=== PATIENT | female | born 1980 | race Caucasian/White ===

== ENCOUNTER 2017-09-26 11:23 | Emergency (ER) | payer OTHER ==
[2017-09-26 11:30] VITALS: BP 99/50
--- OUTSIDE RECORDS SUMMARY | 2017-09-26 11:31 | XMS REPORT ---
:1980 External Reference #:[id number] Author Organization [facility] [employer] [facility] Address [address] [place] [address] Phone [phone] Care Team Providers Name Role Phone Bernadette Martell Care Team Information Log Buncher Unavailable Bernadette Martell Primary Care Physician Unavailable Payers Type Date Identification Numbers Payment Provider Subscriber Commercial Policy Number: [id number] [employer] Jose Group Number: [id number] [address] PayID: [id number] [place] [address] Problems Date Description Provider Status Onset: 08/28/2016 Miscarriage María Martin NP Active Family History Date Family Member(s) Problem(s) Comments Father due to Pulmonary Embolus () Father Skin Cancer Father Diabetes Father Osteoporosis Father Para-thyroid Disease Mother Hypertension Mother Thyroid Disease Mother Fibromyalgia First Daughter A&W First Sister Depression First Sister Asthma Second Sister Depression Second Sister Thyroid Disease Paternal Grandfather Heart Disease Paternal Grandfather due to Old Age () Paternal Grandmother due to CVA () Paternal Grandmother Breast Cancer Paternal Grandmother Diabetes Paternal Grandmother Hypertension Maternal Grandfather due to Blood Clotting Disorder () Maternal Grandmother Bryan's Thyroiditis Maternal Grandmother due to COPD () Maternal Grandmother Hypertension Maternal Aunts Leukemia Social History Type Date Description Comments Education Highest level completed, Doctorate Marital Status Lives With Lives With Daughter Smoke-Free Home is smoke-free Pets None Occupation Professor Cigarette Use Never Smoked Cigarettes ETOH Use Occasionally consumes alcohol Smoking Patient has never smoked Recreational Drug Use Denies Drug Use Daily Caffeine Does not consume caffeine Exercise Type/Frequency Exercises sporadically Seat Belt/Car Seat Always uses seat belt Currently Active Patient is currently sexually active Contraceptive Methods None STD's No STD History Allergies, Adverse Reactions, Alerts Date Description Reaction Status Severity Comments 03/20/2014 Sulfa Antibiotics Anaphylaxis, Urticaria active 03/21/2014 Reglan active 03/22/2014 Codeine active 07/18/2014 Bacitracin active 07/18/2014 Environmental active 08/28/2016 Biaxin active Medications Medication Date Status Form Strength Qnty SIG Indications Ordering Provider / Active Unknown Vitamin 0000 Diflucan 03/02/ Hx Tablets 150mg 2tabs take one Mary 2016 - tablet by Donis 03/05/ mouth - , CNM 2016 repeat in 48 hours if no improvement No Active 08/28/ Hx Unknown Medications 2016 - 2015 Terconazole 08/26/ Hx Cream 0.8% 20g use 1 vaginal Rodney A. 2015 - applicator Gelber, 08/26/ every night M.D. 2016 at bedtime x 3 days Nystatin 08/25/ Hx Ointment [id number] 15gm use three Corrina 2016 - /GM times a day Jose, 08/27/ to affected 2016 area as needed pruritis Citric 02/11/ Hx Solution 334-500mg/ 250cc take 10-30cc Phaelon Acid-Sodium 2015 - 5ML PO every 6 MD Akosua Citrate 12/13/ hrs as needed 2015 for heartburn Ranitidine 01/01/ Hx Tablets 150mg 60tabs take 1 tab by Phaelon HCL 2015 - mouth 1-2 MD Akosua 02/24/ times daily 2014 for heartburn Calcium 500 + 00/00/ Hx Unknown D - 2013 Lysine 00/00/ Hx 500mg Unknown - 2013 Nuvaring 00/00/ Hx Unknown 0000 - 2013 Valtrex 00/00/ Hx Unknown - 2013 Vitamin C 00/00/ Hx Unknown 0000 - W/Vitamin E 2013 00/00/ Hx Unknown 0000 - 2015 Claritin 00/00/ Hx Unknown 0000 - 2013 Tums 00/00/ Hx Unknown 0000 - 2014 Immunizations CPT Code Status Date Vaccine Lot # [id number] Given 11/27/2014 Tetnus, Diptheria Toxoids And Acellular Pertussis, [id number] PT > 7Yrs Old Vital Signs Date Vital Result Comment 09/18/2017 BP Systolic 110 mmHg BP Diastolic 70 mmHg Height 64.5 inches 5'4.50" Weight 122.00 lb BMI (Body Mass Index) 20.6 kg/m2 Last Menstrual Period 9170256 3 Parity 1 04/23/2017 BP Systolic 102 mmHg BP Diastolic 60 mmHg Height 64.5 inches 5'4.50" Weight 122.00 lb BMI (Body Mass Index) 20.6 kg/m2 Last Menstrual Period 8769888 3 Parity 1 03/05/2017 BP Systolic 116 mmHg BP Diastolic 62 mmHg Height 64.5 inches 5'4.50" Weight 121.00 lb BMI (Body Mass Index) 20.4 kg/m2 3 Parity 1 03/02/2017 BP Systolic 106 mmHg BP Diastolic 60 mmHg Height 64.5 inches 5'4.50" Weight 122.00 lb BMI (Body Mass Index) 20.6 kg/m2 Last Menstrual Period 8022482 3 Parity 1 02/27/2017 BP Systolic 100 mmHg BP Diastolic 62 mmHg Height 64.5 inches 5'4.50" Weight 121.00 lb BMI (Body Mass Index) 20.4 kg/m2 Last Menstrual Period 7311005 3 Parity 1 02/18/2017 BP Systolic 104 mmHg BP Diastolic 64 mmHg Height 64.5 inches 5'4.50" Weight 121.00 lb BMI (Body Mass Index) 20.4 kg/m2 Last Menstrual Period 0143256 3 Parity 1 12/26/2016 BP Systolic 104 mmHg BP Diastolic 56 mmHg Height 64.5 inches 5'4.50" Weight 118.00 lb BMI (Body Mass Index) 19.9 kg/m2 Last Menstrual Period 4987483 2 Parity 1 09/30/2016 BP Systolic 100 mmHg BP Diastolic 66 mmHg Height 64.5 inches 5'4.50" Weight 119.00 lb BMI (Body Mass Index) 20.1 kg/m2 Last Menstrual Period 8968435 2 Parity 1 09/12/2016 BP Systolic 108 mmHg BP Diastolic 64 mmHg Height 64.5 inches 5'4.50" Weight 121.00 lb BMI (Body Mass Index) 20.4 kg/m2 Last Menstrual Period 8881058 2 Parity 1 09/02/2016 BP Systolic 100 mmHg BP Diastolic 68 mmHg Height 64.5 inches 5'4.50" Weight 119.00 lb BMI (Body Mass Index) 20.1 kg/m2 Last Menstrual Period 5394554 2 Parity 1 08/28/2016 BP Systolic 108 mmHg BP Diastolic 60 mmHg Height 64.5 inches 5'4.50" Weight 119.00 lb BMI (Body Mass Index) 20.1 kg/m2 Last Menstrual Period 8321007 2 Parity 1 08/25/2016 BP Systolic 106 mmHg BP Diastolic 64 mmHg Height 64.5 inches 5'4.50" Weight 119.00 lb BMI (Body Mass Index) 20.1 kg/m2 Last Menstrual Period 4476619 1 Parity 1 05/28/2016 BP Systolic 104 mmHg BP Diastolic 70 mmHg Height 64.5 inches 5'4.50" Weight 116.00 lb BMI (Body Mass Index) 19.6 kg/m2 1 Parity 1 12/20/2015 BP Systolic 118 mmHg BP Diastolic 66 mmHg Height 64.5 inches 5'4.50" Weight 111.00 lb BMI (Body Mass Index) 18.8 kg/m2 Last Menstrual Period 7287553 1 Parity 1 03/26/2015 BP Systolic 104 mmHg BP Diastolic 68 mmHg Height 64.5 inches 5'4.50" Weight 126.00 lb BMI (Body Mass Index) 21.3 kg/m2 Last Menstrual Period 4363016 1 Parity 1 03/14/2015 BP Systolic 98 mmHg BP Diastolic 58 mmHg Body Temperature 97.7 F Height 64.5 inches 5'4.50" Weight 130.00 lb BMI (Body Mass Index) 22.0 kg/m2 Last Menstrual Period 8269284 1 Parity 1 07/18/2014 BP Systolic 118 mmHg BP Diastolic 68 mmHg Height 64.5 inches 5'4.50" Weight 127.00 lb BMI (Body Mass Index) 21.5 kg/m2 Last Menstrual Period 0056723 1 Parity 0 03/22/2014 BP Systolic 98 mmHg BP Diastolic 60 mmHg Height 64.5 inches 5'4.50" Weight 124.00 lb BMI (Body Mass Index) 21.0 kg/m2 Last Menstrual Period 8163937 0 Results Test Date Test Result H/L Range Note Laboratory test finding 03/23/2017 HCG 8.61 mIU/mL 1 Laboratory test finding 03/05/2017 Surgical Pathology SEE RESULT 2 BELOW Urine Culture And 02/27/2017 Urine Culture SEE RESULT 3 Sensitivities BELOW Laboratory test finding 10/08/2016 HCG 13.39 mIU/mL 4, 5 Laboratory test finding 09/30/2016 HCG 38.47 mIU/mL 6 CBC With No Diff 09/18/2016 White Blood Count 5.9 10^3/uL 3.5-10.8 Red Blood Count 4.60 10^6/uL 4.0-5.4 Hemoglobin 14.4 g/dL 12.0-16.0 Hematocrit 43 % 35-47 Mean Corpuscular Volume 94 fL 80-97 Mean Corpuscular Hemoglobin 31 pg 27-31 Mean Corpuscular HGB Conc 33 g/dL 31-36 Red Cell Distribution Width 14 % 10.5-15 Platelet Count 209 10^3/uL 150-450 Mean Platelet Volume 10 um3 7.4-10.4 Laboratory test finding 09/18/2016 HCG 770.19 mIU/mL 7 Laboratory test finding 08/30/2016 HCG 45468.00 mIU/mL 8 Laboratory test finding 08/28/2016 HCG 71273.00 mIU/mL 9 Urine Culture And 08/28/2016 Urine Culture SEE RESULT BELOW 10 Sensitivities Laboratory test finding 08/25/2016 Gardnerella/Yeast: SEE RESULT BELOW 11 Vaginal Dna Laboratory test finding 12/20/2015 Cytology SEE RESULT BELOW 12 Cardiolipin AB 12/20/2015 Cardiolipin AB (Iga) <11 APL <=11 13 Igg,Iga,Igm Cardiolipin AB (Igg) <14 GPL <=14 14 Cardiolipin AB (Igm) <12 MPL <=12 15 Lupus Anticoagulant 12/20/2015 Lupus Anticoagulant see note 16 PTT-LA Screen 43 sec High <=40 DRVVT Mix Interpretation Not Indicated DRVVT Screen 49 sec High <=45 Laboratory test finding 12/20/2015 Hexagonal Phase Confirm Negative Negative (Reflex) DRVVT Confirmation (Reflex) Negative Negative CBC With No Diff 01/15/2015 White Blood Count 11.7 10^3/uL High 4.8-10.8 17 Red Blood Count 3.65 10^6/uL Low 4.0-5.4 17 Hemoglobin 11.9 g/dL Low 12.0-16.0 17 Hematocrit 35 % 35-47 17 Mean Corpuscular Volume 95 fL 80-97 17 Mean Corpuscular Hemoglobin 33 pg High 27-31 17 Mean Corpuscular HGB Conc 34 g/dL 31-36 17 Red Cell Distribution Width 13 % 10.5-15 17 Platelet Count 163 10^3/uL 150-450 17 Mean Platelet Volume 11 um3 High 7.4-10.4 17 Type And Screen 01/15/2015 Patient Blood Type A Positive 17 Antibody Screen NEGATIVE 17 Laboratory test 01/15/2015 Hemoglobin 0.00 17, 18 finding Stain Laboratory test 01/01/2015 Group B Strep (SEE NOTE) 19 finding Culture Screen CBC With No Diff 11/09/2014 White Blood Count 11.4 10^3/uL High 4.8-10.8 Red Blood Count 3.63 10^6/uL Low 4.0-5.4 Hemoglobin 12.0 g/dL 12.0-16.0 Hematocrit 36 % 35-47 Mean Corpuscular Volume 99 fL High 80-97 Mean Corpuscular Hemoglobin 33 pg High 27-31 Mean Corpuscular HGB Conc 33 g/dL 31-36 Red Cell Distribution Width 13 % 10.5-15 Platelet Count 180 10^3/uL 150-450 Mean Platelet Volume 10 um3 7.4-10.4 Laboratory test finding 11/09/2014 Glucose 1 HR Post Prandial 87 mg/dL 70 -160 Maternal Serum Afp 08/15/2014 EMA Interpretation SEE NOTE 20 Risk For NTD (Osb) LESS THAN 1:5000 21 Afp,Serum 26.8 NG/ML Adjusted Mom 0.77 22 Comment SEE NOTE 23 Date Of 1980 CLAUDIA 02/05/2015 CLAUDIA Determined By ULTRASOUND Gestational Age 15.1 WEEKS Weight 127 LBS Race =W Insulin Dependent Diabetic NO Repeat Sample NO Number Of Fetuses 1 History Of NTD NO Date Of Draw 08/15/2014 Wrapper Layer SEE NOTE 24 Urine Culture And Sensitivities 07/18/2014 Urine Culture (SEE NOTE) 25 Cystic Fibrosis Carrier ([place]) 07/18/2014 Reported Ethnicity see note 26 CF Result see note 27 Interpretation see note 28 Mutations/Polymorphisms see note 29 Method see note 30 Reviewer see note 31 HIV 1/2 AB Evaluation 07/18/2014 HIV 1 2 Antibody Nonreactive Nonreactive 32, 33 Type And Screen 07/18/2014 Patient Blood Type A Positive 32 Antibody Screen NEGATIVE 32 CBC With No Diff 07/18/2014 White Blood Count 8.0 10^3/uL 4.8-10.8 32 Red Blood Count 4.19 10^6/uL 4.0-5.4 32 Hemoglobin 13.5 g/dL 12.0-16.0 32 Hematocrit 39 % 35-47 32 Mean Corpuscular Volume 94 fL 80-97 32 Mean Corpuscular Hemoglobin 32 pg High 27-31 32 Mean Corpuscular HGB Conc 34 g/dL 31-36 32 Red Cell Distribution Width 13 % 10.5-15 32 Platelet Count 201 10^3/uL 150-450 32 Mean Platelet Volume 10 um3 7.4-10.4 32 RPR 07/18/2014 Syphilis IgG TNP Nonreactive 32 RPR Nonreactive Nonreactive 32 RPR Titer TNP 32 Pediatric/Maternal YES 32 PNL No Urine 07/18/2014 Rubella Screen Immune IU/mL Immune 32 Hemoglobin A1c 5.2 % Less than 6.0 32, 34 Hepatitis B Surface Antigen Nonreactive Nonreactive 32, 35 HPV E6/E7 Mrna 07/18/2014 Aptima HPV (SEE NOTE) 36 ThinPrep Pap Test HPV Regardless SEE IMAGE Laboratory test finding 07/18/2014 ThinPrep Pap Test HPV (SEE NOTE) 37 Regardless Chlamydia / Neisseria - Liquid Cytology (SEE NOTE) 38 Type And Screen 06/28/2014 Patient Blood Type A Positive 39 Antibody Screen NEGATIVE 39 Laboratory test finding 03/22/2014 Beta HCG Quantitative < 0.60 IU/mL 0.0-5.0 40 1 <5.0 Negative 5.0 - 25.0 Indeterminate (Repeat testing recommended after 72 hours) >25.0 Positive Perimenopausal women can display HCG levels of up to 20 mIU/mL 2 SEE RESULT BELOW Name: GRIFFIN ROSALES : [address]: Lorin JONES Acct: [id number] Unit: [id number] AGE: 36 Location: [facility] Re03/05/17 SEX: F Status: REG REF SPEC: [id number] ENEIDA: 03/05/[address]: Lorin JONES REQ: [id number] RECD: 03/05/17114 STATUS: SOUT _ ORDERED: LEVEL 4 COMMENTS: [id number] Deeper levels of sectioning through all the blocks show no evidence of parts or chorionic villi. Addendum Signed (signature on file) Wandy Woodard MD 1116 FINAL DIAGNOSIS Uterine contents, curettage: -- Decidualized hypersecretory endometrium; see comment. COMMENT: Diagnostic evidence of parts or chorionic villi is not identified in the initial levels of sectioning examined. Deeper levels of sectioning are pending and the results will be reported in an addendum. CLINICAL HISTORY LMP: 12/24, 02/18 ultrasound shows 5 week 5 day positive cardiac activity, 02/27 ultrasound shows 6 week slow agonal cardiac activity, 03/02 ultrasound shows no cardiac activity, 03/05 tissue passed. PRE-OPERATIVE DIAGNOSIS Possible missed GROSS DESCRIPTION The specimen is received in formalin with no source identified and a requisition labeled, Question POC, and consists of two brandon-archuleta irregular membranous tissue fragments with a small amount of adherent red-brown blood clot aggregating 4.6 x 3.5 by up to 0.8 cm. Definitive chorionic villi are not identified. No parts are identified. Entirely submitted, five cassettes. CONTINUED ON NEXT PAGE * ML=Testing performed at Main Lab DEPARTMENT OF PATHOLOGY, [address] [place] [address] Darryl Garnica M.D. Director [facility] # [id number] RUN DATE: 03/09/17 [facility] LAB LIVE PAGE 2 Patient: PATRICA YURYGRIFFIN [id number] (Continued) GROSS DESCRIPTION (Continued) Signed (signature on file) Wandy Woodard MD 1522 END OF REPORT * ML=Testing performed at Main Lab DEPARTMENT OF PATHOLOGY, [address] [place] [address] Darryl Garnica M.D. Director [facility] # [id number] 3 SEE RESULT BELOW Name: GRIFFIN ROSALES : [address]: Mary Dykes CNM Acct: [id number] Unit: [id number] AGE: 36 Location: [facility] Re02/27/17 SEX: F Status: REG REF SPEC: [id number] ENEIDA: 02/27/17-1032 [facility] DR: Mary Dykes [facility] REQ: [id number] RECD: 02/27/17044 STATUS: COMP _ SOURCE: URINE SPDESC: ORDERED: Urine Culture COMMENTS: [id number] Urine Source: Random Procedure Result Reported Site Urine Culture Final 03/02/17- 0904 ML Organism 1 CHLOÉ ALBICANS [place] Count 1-10,000 (Few) CFU/ML * ML - MAIN LAB ([facility]) . END OF REPORT * ML=Testing performed at Main Lab DEPARTMENT OF PATHOLOGY, [address] [place] [address] Darryl Garnica M.D. Director [facility] # [id number] 4 [id number] 5 <5.0 Negative 5.0 - 25.0 Indeterminate (Repeat testing recommended after 72 hours) >25.0 Positive Perimenopausal women can display HCG levels of up to 20 mIU/mL 6 <5.0 Negative 5.0 - 25.0 Indeterminate (Repeat testing recommended after 72 hours) >25.0 Positive Perimenopausal women can display HCG levels of up to 20 mIU/mL 7 <5.0 Negative 5.0 - 25.0 Indeterminate (Repeat testing recommended after 72 hours) >25.0 Positive Perimenopausal women can display HCG levels of up to 20 mIU/mL 8 <5.0 Negative 5.0 - 25.0 Indeterminate (Repeat testing recommended after 72 hours) >25.0 Positive Perimenopausal women can display HCG levels of up to 20 mIU/mL 9 <5.0 Negative 5.0 - 25.0 Indeterminate (Repeat testing recommended after 72 hours) >25.0 Positive Perimenopausal women can display HCG levels of up to 20 mIU/mL 10 SEE RESULT BELOW Name: GRIFFIN ROSALES : [address]: María Martin NP Acct: [id number] Unit: [id number] AGE: 35 Location: [facility] Re08/28/16 SEX: F Status: REG REF SPEC: [id number] ENEIDA: 08/28/[address]: María Martin NP REQ: [id number] RECD: 08/28/162595 STATUS: COMP _ SOURCE: URINE SPDESC: ORDERED: Urine Culture COMMENTS: [id number] Urine Source: Random Procedure Result Reported Site Urine Culture Final 08/29/16- 1605 ML No Growth (<1,000 CFU/mL) * ML - [facility] ([facility]) . END OF REPORT * ML=Testing performed at Main Lab DEPARTMENT OF PATHOLOGY, [address] [place] [address] Darryl Garnica M.D. Director [facility] # [id number] 11 SEE RESULT BELOW Name: GRIFFIN ROSALES : [address]: María Martin NP Acct: [id number] Unit: [id number] AGE: 35 Location: [facility] Re08/25/16 SEX: F Status: REG REF SPEC: [id number] ENEIDA: 12 [facility] DR: María Martin NP REQ: [id number] RECD: 08/25/16 STATUS: COMP _ SOURCE: VAGINAL SPDESC: ORDERED: Alexandrea,Yeast DNA, Trich DNA COMMENTS: [id number] Procedure Result Reported Site Gardnerella/Yeast: Vaginal DNA Final 08/26/16- 1041 ML Organism 1 Negative Gardnerella Organism 2 POSITIVE CHLOÉ The presence of G. vaginalis, although suggestive, is not diagnostic for bacterial vaginosis. Results should be interpreted in conjuction with other clinical and laboratory data available. Women with vaginal discharge should be evaluated for risk factors of cervicitis and pelvic inflammatory disease, toxic shock syndrome (S.aureus), and if present, evaluated for organisms not included in this assay such as N. gonorrhoeae, C. trachomatis, Mobiluncus, Mycoplasma and/or Prevotella. Mixed infections may occur. The performance of this test on patient specimens collected during or immediately after antimicrobial therapy is unknown. The presence or absence of Chloé species, or G. vaginalis cannot be used as a test for therapeutic success or failure. Trichomonas: Vaginal DNA Probe Final 08/26/16- 1041 ML Organism 1 Negative Trichomonas CONTINUED ON NEXT PAGE * ML=Testing performed at Main Lab DEPARTMENT OF PATHOLOGY, [address] [place] [address] Darryl Garnica M.D. Director [facility] # [id number] Patient: GRIFFIN ROSALES [id number] (Continued) Specimen: [id number] Collected: 08/25/16 Received: 08/25/16 (Continued) Procedure Result Reported Site Trichomonas: Vaginal DNA Probe Final (continued) 08/26/161040 The presence or absence of T. vaginalis cannot be used as a test for therapeutic success or failure. * ML - MAIN LAB ([facility]) . END OF REPORT * ML=Testing performed at Main Lab DEPARTMENT OF PATHOLOGY, [address] [place] [address] Darryl Garnica M.D. Director [facility] # [id number] 12 SEE RESULT BELOW Name: PATRICA SHANICUBAGRIFFIN : [address]: Afia Tai MD Acct: [id number] Unit: [id number] AGE: 35 Location: [facility] Re12/20/15 SEX: F Status: REG REF SPEC: [id number] ENEIDA: 12/20/15-[address]: Afia Tai MD REQ: [id number] RECD: 12/21/15 STATUS: SOUT _ ORDERED: IMAGE ANALYSIS FINAL DIAGNOSIS Negative for Intraepithelial lesion or Malignancy A. Ectocervical/Endocervical Specimen Adequacy: Satisfactory of evaluation Transformation zone component identified Patient Information: HPV: Thin Layer Pap Test w/reflex to high risk HPV RNA testing when ASCUS Actual Specimen Date: 12/20/15 Last Menstrual Date: 04/17/14 Date of Last Specimen: 07/18/14 Signed (signature on file) JOSE Jesus(ASCP) 12/24 1340 This Pap test was evaluated with the assistance of the SaludFÁCILPrep Test Imaging System. Due to cytologic findings at the threat analyst microscope, comprehensive manual rescreening by a Cigarette Making Machine Operator may be required. The Pap Smear is a screening test designed to aid in the detection of premalignant and malignant conditions of the uterine cervix. It is not a diagnostic procedure and should not be used as the sole means of detecting cervical cancer. Both false- positive and false- negative reports do occur. Depending on your risk status, a Pap smear should be obtained and evaluated every 1-3 years. END OF REPORT * ML=Testing performed at Main Lab DEPARTMENT OF PATHOLOGY, [address] [place] [address] Darryl Garnica M.D. Director [facility] # [id number] 13 Value Interpretation ----- < or=11 Negative 12 - 20 Indeterminate 21 - 80 Low to Medium Positive > 80 High Positive The antiphospholipid antibody syndrome (APS) is a clinical-pathologic correlation that includes a clinical event (e.g. thrombosis, loss, thrombocytopenia) and presistent positive antiphospholipid antibodies (IgM or IgG ARACELI >40 MPL/GPL, IgM or IgG anti-b2GPI antibodies or a lupus anticoagulant). The IgA isotype has been implicated in smaller studies, but have not yet been incorporated into the APS criteria. International consensus guidelines suggest waiting at least 12 weeks before retesting to confirm antibody persistence. Reference J Thromb Haemost 2006: 4; 295 14 Value Interpretation ----- < or=14 Negative 15 - 20 Indeterminate 21 - 80 Low to Medium Positive > 80 High Positive The antiphospholipid antibody syndrome (APS) is a clinical-pathologic correlation that includes a clinical event (e.g. thrombosis, loss, thrombocytopenia) and persistent positive antiphospholipid antibodies (IgM or IgG ARACELI >40 MPL/GPL IgM or IgG anti-b2GPI antibodies or a lupus anticoagulant). The IgA isotype has been implicated in smaller studies, but have not yet been incorporated into the APS criteria. International consensus guidelines suggest waiting at least 12 weeks before retesting to confirm antibody persistence. Reference J Thromb Haemost 2006: 4; 295 15 Value Interpretation ----- < or=12 Negative 13 - 20 Indeterminate 21 - 80 Low to Medium Positive > 80 High Positive The antiphospholipid antibody syndrome (APS) is a clinical-pathologic correlation that includes a clinical event (e.g. thrombosis, loss, thrombocytopenia) and persistent positive antiphospholipid antibodies (IgM or IgG ARACELI >40 MPL/GPL, IgM or IgG anti-b2GPI antibodies or a lupus anticoagulant). The IgA isotype has been implicated in smaller studies, but have not yet been incorporated into the APS criteria. International consensus guidelines suggest waiting at least 12 weeks before retesting to confirm antibody persistence. Reference J Thromb Haemost 2006: 4; 295 16 A Lupus Anticoagulant is not detected. Common causes for a prolonged screen and negative confirmatory test include factor deficiencies or interfering substances such as heparin or coumadin. Reference Range: Not Detected http://education.RiverW[employer]/faq/LupusAnticoag This interpretation is based on the following test results. 17 18 Hemoglobin Interpretation: % Cells Volume of Maternal Hemorrhage 0.0 - 0.0045 Up to 15 ml 0.0046 - 0.0090 15 - 30 ml 0.0091 - 0.0135 30 - 45 ml 0.0136 - 0.0180 45 - 60 ml 0.0181 - 0.0225 60 - 75 ml 19 RUN DATE: 01/04/15 [facility] LAB LIVE PAGE 1 RUN TIME: [address] [place] [address] Specimen Inquiry Name: GRIFFIN ROSALES : [address]: Barbara South MD Acct: [id number] Unit: [id number] AGE: 34 Location: [facility] Re01/01/15 SEX: F Status: REG REF SPEC: [id number] ENEIDA: 01/01/15-[address]: Barbara South MD REQ: [id number] RECD: 01/01/153 STATUS: COMP _ SOURCE: CER/VAG/RE SPDESC: ORDERED: Grp B Strp Scrn QUERIES: Is Patient Penicillin Allergic? N Is patient penicillin allergic and/or sensitivities needed? N Provider Requisition # [id number] Procedure Result Verified Site Group B Strep Culture Screen Final 01/04/15- 919 ML Group B Strep Screen Negative * ML - MAIN LAB ([facility]) . END OF REPORT * ML=Testing performed at Main Lab DEPARTMENT OF PATHOLOGY, [address] [place] [address] Darryl Garnica M.D. Director [facility] # [id number] 20 SCREEN NEGATIVE FOR OPEN NTD. 21 LESS THAN 1:5000 22 ADJUSTED AFP MOM INTERPRETIVE CUTOFFS: <2.50 ADJUSTED MOM <1.90 ADJUSTED MOM FOR INSULIN-DEPENDENT DIABETES <4.00 ADJUSTED MOM FOR TWINS <3.50 ADJUSTED MOM FOR TWINS INSULIN-DEPENDENT DIABETES <4.50 ADJUSTED MOM FOR TRIPLETS <4.00 ADJUSTED MOM FOR TRIPLETS INSULIN-DEPENDENT DIABETES 23 THE AFP TEST RESULT INDICATES THAT THIS PATIENT IS SCREEN NEGATIVE FOR OPEN NTD. IT SHOULD BE NOTED THAT NORMAL TEST RESULTS CAN NEVER GUARANTEE THE OF A NORMAL BABY AND THAT 2-3% OF [place] HAVE SOME TYPE OF PHYSICAL OR MENTAL DEFECT, MANY OF WHICH ARE UNDETECTABLE THROUGH ANY KNOWN DIAGNOSTIC TECHNIQUE. THE SINGLE AFP MARKER IS NOT RECOMMENDED FOR DOWN SYNDROME AND OTHER CHROMOSOMAL ABNORMALITIES SCREENING. MUCH GREATER SENSITIVITY IS ACHIEVED WITH MULTIPLE MARKERS, SUCH AFP, HCG, UNCONJUGATED ESTRIOL, AND/OR DIMERIC INHIBIN A. WHILE WOMEN 35 YEARS OR OLDER AT THE TIME OF DELIVERY HAVE THE HIGHEST RISK OF HAVING A CHILD WITH DOWN SYNDROME, CURRENT [place] [employer] OF [employer]STET[employer] AND GYNEC[employer] GUIDELINES (DEPUTY BUILDING GUARD 2007 V109 [id number] RECOMMEND THAT "MATERNAL AGE ALONE NO LONGER BE USED A CUT-OFF TO DETERMINE WHO IS OFFERED SCREENING VERSUS WHO IS OFFERED INVASIVE TESTING." GENETIC COUNCELING MAY BE CONSIDERED. THIS IS A SCREENING TEST, NOT A DIAGNOSTIC TEST. THIS RISK ASSESSMENT REPORT IS BASED IN PART ON DEMOGRAPHIC DATA PROVIDED BY THE ORDERING PHYSICIAN. PLEASE NOTIFY THE LAB PROMPTLY IF ANY DATA IS INCORRECT. FOR ASSISTANCE WITH RECALCULATIONS, PLEASE CALL YOUR LOCAL [facility] AT . FOR ASSISTANCE WITH INTERPRETATION OF THESE RESULTS, PLEASE CALL [phone]. [phone] REVIEWED BY Janelle MAYFIELD M.D. 25 RUN DATE: 07/20/14 [facility] LAB LIVE PAGE 1 RUN TIME: [address] [place] [id number] Specimen Inquiry Name: GRIFFIN ROSALES : [address]: Dimple Mackenzie CNP Acct: [id number] Unit: [id number] AGE: 33 Location: [facility] Re07/18/14 SEX: F Status: REG REF SPEC: [id number] ENEIDA: 07/18/14 [facility] DR: Dimple Mackenzie CNP REQ: [id number] RECD: 07/18/14 STATUS: COMP _ SOURCE: URINE SPDESC: ORDERED: Urine Culture QUERIES: Medent Number [id number] Procedure Result Verified Site Urine Culture Final 07/20/14- 1027 ML No Growth Day 2 (<1,000 CFU/mL) END OF REPORT * ML=Testing performed at Main Lab DEPARTMENT OF PATHOLOGY, [address] [place] [address] Darryl Garnica M.D. Director [facility] # [id number] 26 27 NEGATIVE; NONE OF THE MUTATIONS LISTED BELOW WERE DETECTED 28 This result does not rule out the presence of a mutation or a diagnosis of cystic fibrosis disease (CF).* The risk for mutations that cause CF other than the ones tested depends greatly on family history, clinical presentation, and ethnicity. Chance of Having a CF Mutation Ethnic Group Detection Before After Negative Rate Test Result Ashkenazi [employer] 94% 1 in 24 1 in 400 Non- 88% 1 in 25 1 in 208 -Georgian 72% 1 in 46 1 in 164 -Georgian 65% 1 in 65 1 in 186 -Georgian 49% 1 in 94 1 in 184 Other insufficient data available For assistance with interpretation of these results, please contact your local [facility] genetic counselor or call [facility] ([phone]). 29 G85E (c.254 G>A) 3120+1 G>A(c.2988+1G>A) R334W (c.1000 C>T) 394delTT (c.262_263delTT) V520F (c.1558 G>T) 1717-1 G>A(c.1585-1 G>A) R553X (c.1657 C>T) 1898+1 G>A(c.1766+1 G>A) Y3688Z(c.3846 G>A) 3659delC (c.3437delC) R347H (c.1040 G>A) 621+1 G>T (c.489+1 G>T) R560T (c.1679 G>C) 3905insT (c.3773_3774insT) F6070M(c.3484 C>T) 2183AA>G (c.2051_2052delAAinsG) V6532G(c.3909 C>G) 711+1 G>T (c.579+1 G>T) R117H (c.350 G>A) F859ytu (c.1519_1521delATC) R347P (c.1040 G>T) 2184delA (c.2052delA) G542X (c.1624 G>T) 3876delA (c.3744delA) A455E (c.1364 C>A) 1078delT (c.948delT) S549N (c.1647 G>A) E216aac (c.1521_1523delCTT) S549R (c.1646 A>C) 2789+5 G>A(c.2657+5 G>A) G551D (c.1652 G>A) 3849+10kb C>T (c.4774-2017 C>T) This assay detects thirty-two mutations, including the twenty-three core mutations recommended by the [place] [employer] (ACMG) and the [place] [employer]etric[employer] and Gynec[employer] (ACOG) for population-based CF carrier screening. Testing for the intron 8 5T polymorphism is performed only when the R117H mutation is detected. Testing for the I506V and I507V polymorphisms is performed only when a homozygous Delta F508 or Delta I507 mutation is detected. In addition to the ACMG/ACOG panel, this assay detects nine additional mutations. While these mutations are rare in the [place] population, the scientific and medical literature indicates that these mutations are not benign polymorphisms. 30 The mutations listed above are detected by an oligonucleotide ligation assay (EVERARDO) after multiplex- polymerase chain reaction (PCR) amplification of specific CF gene regions. Fluorescent allele-specific reaction products are detected by capillary electrophoresis. Since genetic variation and other factors can affect the accuracy of direct mutation testing, the results of this testing should always be interpreted in light of clinical and familial data. 31 Fausto Leo, Ph.D., [facility] Director, Molecular Genetics The performance characteristics of this assay have been determined by [facility]. Performance characteristics refer to the analytical performance of the test. For more information on this test, go to http://education.[employer].Org/faq/cfscreen 32 SCREENING NOS 33 It is recognized that currently available assays for the detection of antibodies to HIV-1 and/or HIV-2 may not detect all infected individuals. HIV antibodies may be undetectable in some stages of the infection and in some clinical conditions. The performance of this assay has not been established for populations of infants or children. Assayed by Chemiluminescence Microparticle Immunoassay on the Siemens Advia Centaur CP. Values obtained with different methods or kits cannot be used interchangeably.The diagnostic specificity of the ADVIA Centaur 1/O/2 Enhanced assay in the low risk population was 99.90% (6052/6058) with a 95% confidence interval of 99.78 to 99.96%. 34 Therapeutic target for the treatment of diabetes Mellitus patients is <7% HBA1C, and in selective patients <6.0%.Please refer to [place] [employer] Diabetic care guidelines for further information. 35 YES 36 APTIMA HPV HR-HPV: Not Detected Test performed by the FDA-approved Pusher (Gen-Probe) APTIMA HPV test, which detects HPV genotypes: 16, 18, 31, 33, 35, 39, 45, 51, 52, 56, 58, 59, 66, and 68. 37 SPECIMEN PART A. Cervical, Endocervical, ThinPrep Pap (Farm Management Teacher) CYTOLOGY HX Date of Last Menstrual Period: 04/16/14 Menstruation/Preg. History: Other Information:Clinical Diagnosis Code: V22.1 FINAL DIAGNOSIS INTERPRETATION: Negative for Intraepithelial Lesion or Malignancy. SPECIMEN ADEQUACY:Satisfactory for evaluation. Endocervical/transformation zone component present. 38 Chlamydia / Neisseria - Liquid Cytology CHLAMYDIA TRACHOMATIS: Negative NEISSERIA GONORRHOEAE: Negative Note: A negative result does not rule out infection. While Nucleic Acid Amplification is very sensitive, inadequate specimen collection or low levels of organism may lead to negative results. Testing performed by the FDA-approved APTIMA COMBO 2 method. 39 PREG COMPL NOS-UNSPEC 40 <5.0 Negative 5.0 - 25.0 Indeterminate >25.0 Positive Procedures Date CPT Code Description Status 09/18/2017 68972 Echography Transvaginal Completed 03/05/2017 70202 Echography Transvaginal Completed 03/02/2017 83195 OB Ultrasound First Trimester Completed 02/27/2017 41447 OB Ultrasound First Trimester Completed 02/18/2017 00442 OB Ultrasound First Trimester Completed 09/30/2016 80021 Echography Transvaginal Completed 09/12/2016 81731 OB Ultrasound First Trimester Completed 09/02/2016 10176 OB Ultrasound First Trimester Completed 08/28/2016 34383 Echography Transvaginal Completed 05/26/2016 97767 Echography Transvaginal Completed 02/09/2015 17982 Obstetric Care Routine Completed 02/06/2015 74668 Non-Stress Test Completed 01/31/2015 66153 Non-Stress Test Completed 01/24/2015 08409 Biophysical Profile W/ NST Completed 01/24/2015 11053 Echography Uterus Follow-Up Or Repeat Completed 01/17/2015 69280 Non-Stress Test Completed 01/16/2015 14117 Biophysical Profile W/ NST Completed 12/27/2014 90658 Biophysical Profile W/ NST Completed 09/19/2014 39568 Echography Uterus Complete Completed 06/20/2014 79267 OB Ultrasound First Trimester Completed Encounters Type Date Location Provider CPT E/M Dx Office Visit 09/18/2017 9:30a [facility] Afia Tai M.D. 85316 N92.5 N85.8 Office Visit 04/23/2017 3:30p [facility] Afia Tai M.D. 21664 N96 Office Visit 03/05/2017 8:40a [facility] Hazel Treadwell CNM 69045 O03.9 Office Visit 12/26/2016 3:00p [place] [address] N94.5 F41.1 G47.00 Z01.411 Office Visit 09/30/2016 3:30p [place] [address] N92.6 N64.59 Office Visit 09/12/2016 11:30a [place] [address] O02.1 Office Visit 09/02/2016 11:30[place] [address] O36.80x0 Office Visit 08/28/2016 11:00a [facility] María Martin, [employer] CUTTER 76419 O36.80x0 Office Visit 08/25/2016 11:30a [facility] María Martin, ROSALVA 75943 B37.3 Office Visit 05/28/2016 3:30p [facility] Afia Tai M.D. 78216 N91.1 Office Visit 12/20/2015 2:00p [facility] Afia Tai M.D. 91807 Z01.419 Z87.59 P05.9 Office Visit 01/16/2015 8:44a Delivery Afia Tai M.D. 31007 655.73 649.63 465.8 Office Visit 03/22/2014 11:00a [facility] Afia Tai M.D. 98050 617.9 626.4 784.0 V65.49 Plan of Care Future Appointment(s):10/12/2017 11:30 am - [facility] M[facility] at [id number] - Afia Tai M.D.N92.5 Other specified irregular menstruationComments:quant BHCG, cbcCont viatmin dailyKeep track of VBN85.8 Other specified noninflammatory disorders of uterusComments:Uncertain what 1.7cm round area within uterus represents. Another recent Missed Ab?- checking another BHCG today. Retained POC from 02/2017, polyp? fibroid? Discussed options of repeat sono 10/2018 or sched D&C, Hysteroscopy. Plans sched rpt sono.
--- NOTE | 2017-09-26 11:47 | UC ---
Eye Complaint HPI - HPI Summary HPI Summary: Right upper eye lid swollen. some crusty drainage no evidence of stye, conjunctiva without injection , pre auricle lymph tenderness - History of Current Complaint Chief Complaint: UCEye Stated Complaint: EYE COMPLAINT Time Seen by Provider: 09/26/17 11:30 Hx Obtained From: Patient Hx Last Menstrual Period: 09/05/17 ?: No Onset/Duration: Sudden Onset, Lasting Days - 2, Still Present Timing: Constant Severity Initially: Moderate Severity Currently: Moderate Location of Injury: Eye Lid (upper) Aggravating Factor(s): Nothing Alleviating Factor(s): Nothing Associated Signs And Symptoms: Positive: Drainage (Purulent), Swelling. Negative: Photophobia, Fever - Allergies/Home Medications Allergies/Adverse Reactions: Allergies Allergy/AdvReac Type Severity Reaction Status Date / Time Sulfa Drugs Allergy Severe Swelling Verified 09/26/17 11:26 Of Face,Lips,& Throat Bacitracin Allergy Hives Verified 09/26/17 11:26 Clarithromycin [From Biaxin] Allergy Hives Verified 09/26/17 11:26 Codeine Allergy Rash Verified 09/26/17 11:26 Home Medications: Home Medications ValACYclovir (*) [Valtrex 1 GM(*)] 1 gm PO 09/26/17 [History] PMH/Surg Hx/FS Hx/Imm Hx Previously Healthy: Yes - Surgical History Surgical History: None Surgery Procedure, Year, and Place: Tonsilectomy (1998?), PRK (2012), 2 Laparoscopies (1999, 2006) - Family History Known Family History: Positive: Unknown - Social History Occupation: Unemployed Lives: With Family Alcohol Use: Rare Substance Use Type: None Smoking Status (MU): Never Smoked Tobacco - Immunization History Most Recent Influenza Vaccination: unknown Most Recent Tetanus Shot: 11/27/14 Most Recent Pneumonia Vaccination: states received at age 16 Review of Systems Constitutional: Negative Skin: Negative Eyes: Negative, Other - upper right eye lid fluid filled some tenderness "the lid feels heavy" ENT: Negative Respiratory: Negative Cardiovascular: Negative Gastrointestinal: Negative Genitourinary: Negative Motor: Negative Neurovascular: Negative Musculoskeletal: Negative Neurological: Negative Psychological: Negative Is Patient Immunocompromised?: No All Other Systems Reviewed And Are Negative: Yes Physical Exam Triage Information Reviewed: Yes Appearance: Well-Appearing, No Pain Distress, Well-Nourished Vital Signs: Initial Vital Signs Temp 99.6 F 09/26/17 11:27 Pulse 74 09/26/17 11:27 Resp 14 09/26/17 11:27 BP 99/50 09/26/17 11:27 Pulse Ox 100 09/26/17 11:27 Vital Signs Reviewed: Yes Eye Exam: Normal Eyes: Positive: Conjunctiva Clear, Other: - perrla, eomi no pain with movement ENT Exam: Normal ENT: Positive: Normal ENT inspection, Hearing grossly normal, Pharynx normal, TMs normal, Uvula midline. Negative: Nasal congestion, Tonsillar swelling, Tonsillar exudate, Trismus, Hoarse voice, Dental tenderness Dental Exam: Normal Neck exam: Normal Neck: Positive: Supple, Nontender, Enlarged Nodes @ - right preauricle Respiratory Exam: Normal Respiratory: Positive: Chest non-tender, Lungs clear, Normal breath sounds, No respiratory distress, No accessory muscle use Cardiovascular Exam: Normal Cardiovascular: Positive: RRR, No Murmur, Pulses Normal, Brisk Capillary Refill Musculoskeletal Exam: Normal Musculoskeletal: Positive: Strength Intact, ROM Intact, No Edema Neurological Exam: Normal Neurological: Positive: Alert, Muscle Tone Normal Psychological Exam: Normal Skin Exam: Normal Eye Complaint Course/Dx - Course Course Of Treatment: erythromycin ointment, prednisone, follow with optho-prn, cool compress - Differential Dx/Diagnosis Provider Diagnoses: stye right eye Discharge - Discharge Plan Condition: Stable Disposition: HOME Prescriptions: Erythromycin OPTH OINT* [Erythromycin 0.5% OPTH OINT*] 1 applic RIGHT EYE TID # 1 ophth.oint predniSONE TAB* [Deltasone TAB*] 20 mg PO DAILY #8 tab Patient Education Materials: Stye (ED), Cold Compress or Soak (ED) Referrals: Long Hassan MD [Medical Doctor] - 3 Days
== END 2017-09-26 12:00 | disposition home or self-care (01) ==
LOC: UCEAST 11:23
DX: H00.021 Hordeolum internum right upper eyelid (principal); Z88.2 Allergy status to sulfonamides; Z88.1 Allergy status to other antibiotic agents; Z88.5 Allergy status to narcotic agent
CPT/HCPCS: 99201; G0463